=== PATIENT | female | born 1985 | race African-American/Black ===

== ENCOUNTER 2016-06-12 11:29 | Emergency (ER) | payer OTHER ==
[~2016-06-12] VITALS: Ht 160 cm; Wt 65.8 kg
[2016-06-12] MEDS ORDERED: NORCO 5-325 TA1 EACH PO (14:30)
[2016-06-12 15:11] VITALS: BP 118/70
== END 2016-06-12 15:13 | disposition home or self-care (01) ==
LOC: ER 11:29
DX: S20.20XA Contusion of thorax, unspecified, initial encounter (principal); S39.012A Strain of muscle, fascia and tendon of lower back, initial encounter; V89.2XXA Person injured in unspecified motor-vehicle accident, traffic, initial encounter; Y93.89 Activity, other specified; Y92.89 Other specified places as the place of occurrence of the external cause; Y99.8 Other external cause status